=== PATIENT | female | born 1955 | race Caucasian/White ===

== ENCOUNTER 2024-03-19 10:30 | Outpatient (RCR) | payer BC, SELFPAY ==
--- NOTE | 2024-03-05 11:59 | HP.PTEVAL ---
Patient's Visit Information Visit Information Visit Information: JOSÉ MIGUEL CHANDLER is a 69 year old F referred to Physical Therapy by ANA Olson with a diagnosis of Lumbar radiculopathy. Date of Evaluation: 03/05/24 Physical Therapist: Chucho Benson, PT, ATC Visit Plan Frequency: 1x/Week Duration: 2 Weeks Plan: Postural education, Prone prop progression, and core stab ex's Subjective Subjective: Pt reports she has had chronic LBP for several years. Pt reports this episode originated 3 weeks ago when she was sweeping her floor. Pt notes she experienced severe LBP which radiated down her L LE all the way to her foot. Pt reports she had x-rays which revealed scoliosis. Pt reports she is scheduled for a MRI on 03/06/24. Pt notes in the meantime, she was ordered to come to PT in an attempt to help alleviate some of her pain. Pt reports her pain is actually much better today. Pt notes very minimal LBP today and no L LE radiculopathy. Pt reports sleep difficulty when she has her pain. Pt reports most of her pain is controlled at this time by taking pain meds. Pt reports forward bending and heavy lifting is what increases her pain. Pt also reports prolonged sitting tends to increase her pain. Pt reports nothing but pain meds helps to decrease pain. 4/10 pain while sitting here at rest, increases to 9/10 at worst. Pain LBP: Pain Intensity (Out of 10): 4 Pain Intensity Range: 9 Objective Objective: Neuro: B LE sensation is WNL to light touch. B patellar reflex= 2/3 MMT: B LE's are grossly 5/5 throughout ROM: Pt is minimally limited with flexion, moderately limited with extension. B SB is WNL compared bilaterally Repeated movements: RFIS 10x2 increased LBP. JUAN 10x2 increased LBP. Prone prop 1 min x2 decreased LBP Balance/Special Test Scores Oswestry Low Back Score: 17 Goals Goal 1:: I with HEP after 3 visits Goal Time Frame: 2 Weeks Goal 2:: Decrease LBP x 50% to aid with sleep Goal Time Frame: 2 Weeks Goal 3:: Decrease L LE radiculopathy x 50% to aid with IADL's Goal Time Frame: 2 Weeks Rehabilitation Potential Physical Therapy Diagnosis: Pt has LBP and L LE radiculopathy secondary to L/S disc derangement Rehabilitation Potential: Good Anticipated Interventions Patient/Client Instruction: Educate patient on: Condition and Plan of Care For the Purpose of:: To improve self management Therapeutic Exercise to Include: Strength training, Postural training, Dynamic Lumbar Stabilization and Debra Exercises For the Purpose of:: To decrease pain, To increase ROM and To improve muscle performance and motor function Text: Thank you for the opportunity to evaluate your patient. For Medicare and Medicare HMO plans, please review the plan of care and approve it. It will need to be FAXED BACK to us at [phone] for Medicare purposes. For Medicare only, by signing this I certify the plan of care. Please let me know if there are questions or concerns regarding this plan of care. Physician Signature: Date:
--- NOTE | 2024-05-14 12:31 | HP.PT.NRP ---
Patient Information Patient Information: JOSÉ MIGUEL CHANDLER was seen in my office for initial evaluation on 03/05/24. The following Plan of Care was established for this patient: POC Established Initial Frequency: 1x/Week Initial Duration: 2 Weeks Anticipated Interventions Patient/Client Instruction: Educate patient on: Condition and Plan of Care For the Purpose of:: To improve self management Therapeutic Exercise to Include: Strength training, Postural training, Dynamic Lumbar Stabilization and Debra Exercises For the Purpose of:: To decrease pain, To increase ROM and To improve muscle performance and motor function Last Seen Last Seen: This patient was last seen in our office . Pertinent comments regarding their Physical therapy will appear below: Pt has not returned for physical therapy for greater than 30 days and is discontinued at this time. At this point I will be discontinuing this patient from physical therapy. I would be happy to see this patient again in the future if found appropriate by the physician. Thank you! Chucho Benson, PT, ATC Balance/Gait/Functional tests Balance/Special Test Scores Oswestry Low Back Score: 17
== END 2024-03-19 19:00 | disposition home or self-care (01) ==
LOC: PT 10:30
PROVIDERS: Referring Provider Student in an Organized Health Care Education/Training Program; Visit Provider Student in an Organized Health Care Education/Training Program
DX: M54.16 Radiculopathy, lumbar region (principal)
CPT/HCPCS: 97110; 97161